=== PATIENT | female | born 1985 | race Caucasian/White ===

== ENCOUNTER 2024-01-20 22:09 | Emergency (ER) | payer SELFPAY ==
[2024-01-20 22:17] VITALS: BP 120/79
--- NOTE | 2024-01-20 22:58 | ED.GENMED ---
History of Present Illness
General
Chief Complaint: Musculo-Skeletal Complaint
Source: patient
Exam Limitations: none
Time Seen by Provider: 01/20/24 22:45
Travel History
Have you had any contact with someone who has COVID-19?: No
Do you have any symptoms of coronavirus? Fever > 100 degrees, chills, cough, shortness of breath, sore throat, loss of taste or smell, muscle aches, or headache?: No
History of Present Illness
History of Present Illness:
See MDM
Past History
Past History
ED Past Medical History: Psychiatric
ED Past Surgical History: Appendectomy
Social History
Tobacco: Vaping
Alcohol: None
Phy Exam
Physical Exam
Physical Exam:
See MDM
Course
Orders/Labs/Results
Orders:
Orders
01/20/24 22:21
Electrocardiogram (*1) Urgent
Reason for Study: Other
Other Reason for Exam: shoulder and neck pain.
EKG- Treatment ONCE
01/20/24 22:57
Ketorolac [Toradol] 30 mg IV NOW STA
CR Chest - 2 Views Urgent
Comment:
Reason For Exam: central chest pain
01/20/24 23:14
Complete Blood Count/With Diff Urgent
Comprehensive Metabolic Panel Urgent
Troponin I Urgent
Abnormal Lab Results
01/20/24
23:14
RBC 3.77 L 10^6/uL
(4.20-5.40)
Hgb 11.7 L g/dL
(12.0-16.0)
Hct 33.2 L %
(37.0-47.0)
01/20/24 23:14
01/20/24 23:14
Vital Signs
Initial and Last Documented VS:
Initial Vital Signs
Temp Pulse Resp BP Pulse Ox
98.2 F 69 18 120/79 98
01/20/24 22:17 01/20/24 22:17 01/20/24 22:17 01/20/24 22:17 01/20/24 22:17
Last Documented Vital Signs
Temp Pulse Resp BP Pulse Ox
98.2 F 69 18 120/79 98
01/20/24 22:17 01/20/24 22:17 01/20/24 22:17 01/20/24 22:17 01/20/24 22:17
MDM/Problems Addressed
Differential Diagnosis Includes:
HPI and MDM Narrative:
38-year-old female presenting for evaluation of central and right-sided chest pain. This has been ongoing for the past 3 nights or so. 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
She does not have a history of reflux but believes it is also not that as well. Patient states she is nervous because her brother had cardiac issues. On exam, she is well-appearing nontoxic. Symptoms are nonexertional. Given the nonischemic EKG
and history, doubt ACS. She does have tenderness to bilateral costochondral joints. Will obtain troponin and chest x-ray
Physical exam
General: Well appearing and non-toxic
HEENT: protecting airway
Neck: appears supple
CV: No evidence of cyanosis. Regular rate and rhythm
Chest: Tenderness to bilateral costochondral joint palpation
Resp: No accessory muscle use. Lungs clear
Abd: Non-distended
Extremities: No deformities
Neuro: alert
Psych: Normal affect
Skin: Intact
Problems Addressed including Acute and Chronic Conditions affecting care:
1. Chest pain
Acuity: acute
Prognosis: stable
Details: Doubt ACS given nonischemic EKG and nonexertional component. We discussed likely musculoskeletal and likely costochondritis. Will give Toradol and obtain chest x-ray and troponin
Updates
Chest x-ray and troponin negative. On reassessment after Toradol, patient feeling better. Discussed return precautions
Differential Diagnosis (but not limited to): Costochondritis, musculoskeletal pain, gastritis
Testing considered: D-dimer but she is neither tachycardic nor hypoxic
Drug therapy (if applicable): OTC meds, please see d/c instruction regarding Rx drugs
Amount and/or Complexity of Data Reviewed
Clinical info obtained from: Patient
External data reviewed: N/A
Labs I independently reviewed (but not limited to): Troponin negative
Radiology: X-ray independently reviewed: Chest x-ray clear
Pulse Ox: not hypoxic
EKG independently reviewed: Sinus rhythm, normal axis, no STEMI
Log Chipper: N/A
Critical Care: N/A
Risk of Complication:
Social Determinants of health: Good social support
Discussed with other providers: N/A
Escalation of Care includes Admit/Obs: After being observed in the Emergency Department, pt stable for discharge.
Occasional wrong word or 'sound a like' substitutions may have occurred due to the inherent limitations of voice recognition software. Read the chart carefully and recognize, using context, where substitutions have occurred.
*Critical Care Note
Total Time (30-74mins, 75-104mins- exclusive of procedures): Not Applicable
ED Attending Note
-
Portions of this chart may have been created with voice recognition software.� Occasional wrong word or��sound alike� substitutions may have occurred due to the inherent limitations of voice recognition software.
Discharge Plan
Departure
Patient Disposition: Home (Routine Discharge)
Date of Disposition: 01/21/24
Time of Disposition: 00:03
Patient with high blood pressure during this ER visit?: No
Discharge Problem:
Chest pain
Instructions: Chest Pain PCP Follow Up
Referrals:
Ron Thakur CRNP [Family Provider] -
Activity Restrictions/Additional Instructions:
Please return for any worsening symptoms.
You may return at any time if you have further concerns.
Please follow up with your doctor at the first available appointment, preferably this week.
Thank you for choosing [facility].
Interventions
Interventions:
*Risk Screen - Suicide Last Done: 01/20/24 23:23
*General Assessment Last Done: 01/20/24 23:23
*Neglect/Abuse Screening Last Done: 01/20/24 23:23
ED- Fall Risk Assessment Last Done: 01/20/24 23:50
*ED COVID-19 Vaccine History Last Done: 01/20/24 23:23
ED-Musculoskeletal Assessment Last Done: 01/20/24 23:50
Discharge Date and Time
Print Language: GEORGIAN
[2024-01-20 23:20] VITALS: BP 87/60
[2024-01-20] MEDS: TORADOL 30 MG IV (23:21)
[2024-01-20 23:23] VITALS: BMI 30.1
[2024-01-20 23:24] VITALS: BP 119/76
[2024-01-20 23:29] LABS: % Basophils 1.1 % (0-2); % Eosinophils 1.3 % (0-6); % Immature Granulocytes 0.1 % (0-0.5); % Lymphocytes 33.8 % (20.5-51.1); % Monocytes 6.4 % (1.7-9.3); % Neutrophils 57.3 % (42.2-75.2); Absolute Basophils 0.1 10^3/uL (0-0.2); Absolute Eosinophils 0.1 10^3/uL (0-0.7); Absolute Lymphocytes 2.8 10^3/uL (1.2-3.4); Absolute Monocytes 0.5 10^3/uL (0.1-0.6); Absolute Neutrophils 4.7 10^3/uL (1.4-6.5); Hematocrit 33.2 % (37.0-47.0); Hemoglobin 11.7 g/dL (12.0-16.0); Mean Corp Hgb Conc. 35.2 g/dL (33.0-37.0); Mean Corpuscular Volume 88.1 fL (81.0-99.0); Nucleated Red Blood Cells % 0 %; Platelet Count 361 10^3/uL (130-400); Red Blood Cell Count 3.77 10^6/uL (4.20-5.40); Red Cell Dist. Width 12.7 % (11.5-14.5); White Blood Cell Count 8.3 10^3/uL (4.8-10.8)
[2024-01-20 23:43] LABS: ALT (SGPT) < 10 U/L (0-35); AST (SGOT) 17 U/L (14-36); Albumin 4.1 g/dl (3.5-5.0); Alkaline Phosphatase 60 U/L (38-126); Blood Urea Nitrogen 16 mg/dl (7-17); Calcium 9.5 mg/dl (8.4-10.2); Carbon Dioxide 22 mmol/L (22-30); Chloride 107 mmol/L (98-107); Estimated Creatinine Clearance > 125 ml/min; Glucose 90 mg/dl (70-99); Potassium 3.9 mmol/L (3.5-5.1); Sodium 138 mmol/L (135-145); Total Bilirubin 0.2 mg/dl (0.2-1.3); Total Protein 6.8 g/dl (6.3-8.2); eGFR > 60.00
[2024-01-20 23:56] LABS: Troponin I < 0.012 ng/ml
[2024-01-21] VITALS: BP 106/92
== END 2024-01-21 00:23 | disposition home or self-care (01) ==
LOC: EMR 22:09
PROVIDERS: EMERGENCY PHYSICIAN Student in an Organized Health Care Education/Training Program; FAMILY PHYSICIAN Nurse Practitioner Family
DX: R07.89 Other chest pain (principal); F17.290 Nicotine dependence, other tobacco product, uncomplicated; Z90.49 Acquired absence of other specified parts of digestive tract
CPT/HCPCS: 99283; 96374; 71046; 80053; 84484; 85025; 93005

== ENCOUNTER 2024-11-23 07:36 | Emergency (ER) | payer SELFPAY ==
--- NOTE | 2024-11-23 08:15 | ED.GENMED ---
History of Present Illness
General
Chief Complaint: Chest Pain
Source: patient
Time Seen by Provider: 11/23/24 08:03
History of Present Illness
History of Present Illness:
39-year-old female with past medical history of mitral valve prolapse and lupus presenting to the emergency department for evaluation after awakening this morning around 1 AM with burning sensation in the middle of her chest which woke her up a few
times throughout the night, had 1 episode of nonbloody nonbilious emesis and since about 3 AM has had persistent right-sided pleuritic pain that radiates into her back. Patient was found to have a fever of 101.6 in triage, patient was unaware that
she had a fever prior to arrival but does endorse generalized bodyaches. Patient denies any obvious known sick contacts however she does states she works at [employer] at [employer] and states that there are obviously sick patients within the
hospital system and she could have come into contact with somebody there. Patient did not take any medications prior to arrival. Social history was noted for vaping however patient states that she did not vape at all this morning due to the
discomfort she is experiencing. Family history noncontributory.
Past History
Past History
ED Past Medical History: Psychiatric and Other
ED Past Surgical History: Appendectomy and
Social History
Tobacco: Vaping
Alcohol: None
Drug: None
Living: alone
Employment: Employed
Review of Systems
Review of Systems
All Other Systems: ROS reviewed and negative except as documented in HPI and ROS
Phy Exam
Physical Exam
Physical Exam:
GENERAL: Alert , in no apparent distress but does appear uncomfortable with deep inspiration
HEAD: NCAT
EYE: conjunctiva clear
NECK: Supple
ENT: mmm.
CARDIAC: Regular rate and rhythm
LUNGS: Clear breath sounds bilaterally, no acute respiratory distress, no wheezes/rales/rhonchi
NEUROLOGICAL: Alert and oriented
SKIN: Warm and dry, skin intact.
MUSCULOSKELETAL: well perfused.
PSYCH: Normal and appropriate interaction.
Scores
Heart Failure Risk
Heart Failure Risk Score: Not Applicable
Heart Score for Chest Pain Patients
STEMI patient?: Not applicable
Withdrawal Assessment of Alcohol
Withdrawal Assessment Completed?: Not applicable
Course
Orders/Labs/Results
Orders:
Orders
11/23/24 07:38
Electrocardiogram (*1) Urgent
Reason for Study: Chest Pain
EKG- Treatment ONCE
11/23/24 08:13
CR Chest - 2 Views Urgent
Comment:
Reason For Exam: right sided pleurisy, fever
11/23/24 08:17
Ibuprofen [Motrin] 600 mg PO NOW STA
11/23/24 08:23
Complete Blood Count/With Diff Urgent
Comprehensive Metabolic Panel Urgent
D-Dimer Urgent
Lipase Urgent
Troponin I Urgent
11/23/24 08:30
Influenza A+B Rapid Molecular Urgent
GEOVANNY Source: Nasal Swab
Specimen Description:
11/23/24 08:31
COVID-19 Antigen Urgent
Source: Nasal Swab
Abnormal Lab Results
11/23/24
08:23
WBC 11.0 H 10^3/uL
(4.8-10.8)
Plt Count 412 H 10^3/uL
(130-400)
Absolute Neuts (auto) 10.1 H 10^3/uL
(1.4-6.5)
Absolute Lymphs (auto) 0.4 L 10^3/uL
(1.2-3.4)
Neutrophils % 92.3 H %
(42.2-75.2)
Lymphocytes % 3.2 L %
(20.5-51.1)
D-Dimer 1.62 H ug/mlFEU
(0.00-0.50)
Glucose 126 H mg/dl
(70-99)
Calcium 10.5 H mg/dl
(8.4-10.2)
11/23/24 08:23
11/23/24 08:23
Vital Signs
Initial and Last Documented VS:
Initial Vital Signs
Temp Pulse Resp Pulse Ox
101.6 F H 117 20 93
11/23/24 07:42 11/23/24 07:42 11/23/24 07:42 11/23/24 07:42
Last Documented Vital Signs
Temp Pulse Resp BP Pulse Ox
101.6 F H 106 18 125/75 98
11/23/24 07:42 11/23/24 08:27 11/23/24 08:27 11/23/24 08:27 11/23/24 08:27
MDM/Problems Addressed
Differential Diagnosis Includes:
Pneumonia, pleurisy, PE, COVID, flu
MDM/Problems Addressed:
39-year-old female presenting to the ER for evaluation of chest discomfort, vomiting and fever with symptoms all starting acutely this morning. Did not take any medications prior to arrival as she did not know she had a fever. Will treat fever
here with Motrin. Given the pleuritic nature of the pain combined with her tachycardia will obtain a D-dimer for possible CTA if positive. Disposition pending.
*Radiology
Radiology exam reviewed: preliminary read by ED provider (Right middle lobe pneumonia)
*Pulse Oximetry
Patient hypoxic: no
*Daily Sales Audit Clerk Interpretation
Rate: tachycardiac
Rhythm: sinus
*Critical Care Note
Total Time (30-74mins, 75-104mins- exclusive of procedures): Not Applicable
Patient Management
Escalation/DeEscalation of care consider admission/obs:
Patient has a right middle lobe pneumonia on chest x-ray. She does have a slight leukocytosis. She remains hemodynamically stable and in no acute respiratory distress. D-dimer did come back elevated however this can likely be explained by
patient's pneumonia and I do not suspect PE as a diagnosis. The location of the pneumonia is exactly where her pain is currently occurring. Patient otherwise does not have risk factors for pulmonary emboli. Will treat with Augmentin and
Zithromax. Patient advised on return precautions to the ER. She is otherwise stable for discharge home.
ED Attending Note
-
Portions of this chart may have been created with voice recognition software.� Occasional wrong word or��sound alike� substitutions may have occurred due to the inherent limitations of voice recognition software.
Discharge Plan
Departure
Patient Disposition: Home (Routine Discharge)
Date of Disposition: 11/23/24
Time of Disposition: 10:01
Patient with high blood pressure during this ER visit?: No
Discharge Problem:
Pneumonia
Instructions: Pneumonia in adults - Discharge instructions
Prescriptions:
New
amoxicillin-pot clavulanate 875-125 mg tablet
1 tab PO BID 10 Days Qty: 20 0RF
azithromycin [Zithromax Z-Anthony] 250 mg tablet
See Rx Instructions .ROUTE .COMPLEX 6 Days Qty: 6 0RF
Rx Instructions:
Take two tabs PO day 1, Take one tab PO remaining 4 days
Referrals:
Ron Thakur CRNP [Family Provider] -
Stand Alone Forms: Return to Work
Interventions
Interventions:
*Risk Screen - Suicide Last Done: 11/23/24 07:46
*General Assessment Last Done: 11/23/24 08:27
*Neglect/Abuse Screening Last Done: 11/23/24 08:27
*ED- Fall Risk Assessment Last Done: 11/23/24 08:27
*ED COVID-19 Vaccine History Last Done: 11/23/24 08:27
*Nursing Disposition Last Done: 11/23/24 10:15
ED- Cardiac Assessment Last Done: 11/23/24 08:26
Discharge Date and Time
Discharge Date/Time: 11/23/24 10:15
Print Language: AMHARIC
[2024-11-23 08:27] VITALS: BP 125/75
[2024-11-23] MEDS: MOTRIN 600 MG PO (08:31)
[2024-11-23 08:37] LABS: % Basophils 0.4 % (0-2); % Eosinophils 0.5 % (0-6); % Immature Granulocytes 0.3 % (0-0.5); % Lymphocytes 3.2 % (20.5-51.1); % Monocytes 3.3 % (1.7-9.3); % Neutrophils 92.3 % (42.2-75.2); Absolute Eosinophils 0.1 10^3/uL (0-0.7); Absolute Lymphocytes 0.4 10^3/uL (1.2-3.4); Absolute Monocytes 0.4 10^3/uL (0.1-0.6); Absolute Neutrophils 10.1 10^3/uL (1.4-6.5); Hematocrit 37.9 % (37.0-47.0); Hemoglobin 13.1 g/dL (12.0-16.0); Mean Corp Hgb Conc. 34.6 g/dL (33.0-37.0); Mean Corpuscular Hgb 30.3 pg (27.0-31.0); Mean Corpuscular Volume 87.5 fL (81.0-99.0); Mean Platelet Volume 9.1 fL (7.4-10.4); Nucleated Red Blood Cells % 0 %; Platelet Count 412 10^3/uL (130-400); Red Blood Cell Count 4.33 10^6/uL (4.20-5.40); Red Cell Dist. Width 13.3 % (11.5-14.5)
[2024-11-23 08:46] LABS: ALT (SGPT) 15 U/L (0-35); AST (SGOT) 20 U/L (14-36); Albumin 4.3 g/dl (3.5-5.0); Alkaline Phosphatase 79 U/L (38-126); Blood Urea Nitrogen 17 mg/dl (7-17); Calcium 10.5 mg/dl (8.4-10.2); Carbon Dioxide 24 mmol/L (22-30); Chloride 106 mmol/L (98-107); Glucose 126 mg/dl (70-99); Lipase 90 U/L (23-300); Potassium 4.2 mmol/L (3.5-5.1); Sodium 140 mmol/L (135-145); Total Bilirubin 0.8 mg/dl (0.2-1.3); Total Protein 7.1 g/dl (6.3-8.2); eGFR > 60.00
[2024-11-23 08:54] LABS: Troponin I < 0.012 ng/ml
[2024-11-23 09:10] LABS: COVID-19 Antigen Negative (Negative)
[2024-11-23 09:39] LABS: D-Dimer 1.62 ug/mlFEU (0.00-0.50)
== END 2024-11-23 10:15 | disposition home or self-care (01) ==
LOC: EMR 07:36
PROVIDERS: Physician Assistant Medical; EMERGENCY PHYSICIAN Emergency Medicine; FAMILY PHYSICIAN Nurse Practitioner Family
DX: J18.9 Pneumonia, unspecified organism (principal); I34.1 Nonrheumatic mitral (valve) prolapse; M32.9 Systemic lupus erythematosus, unspecified; F17.290 Nicotine dependence, other tobacco product, uncomplicated; Z90.49 Acquired absence of other specified parts of digestive tract
CPT/HCPCS: 99283; 71046; 80053; 83690; 84484; 85025; 85379; 87502; 87811; 93005

== ENCOUNTER 2025-03-03 13:32 | Emergency (ER) | payer SELFPAY ==
[2025-03-03 13:34] VITALS: BP 172/90
[2025-03-03 15:30] VITALS: BP 114/75
--- NOTE | 2025-03-03 15:38 | ED.GENMED ---
History of Present Illness
General
Chief Complaint: Breathing Problem
Time Seen by Provider: 03/03/25 15:30
History of Present Illness
History of Present Illness:
39-year-old female presents to the emergency department for evaluation of chest discomfort and coughing for the past several days. [place] febrile at home and took Tylenol prior to coming in. Notes that she has been diagnosed with pneumonia twice in
the past 3 to 4 months. She also notes that over the past 6 months she has had increased nighttime chest discomfort and acid reflux sensation, coughing frequently at nighttime. She takes omeprazole but does not feel that this helps.
Past History
Past History
ED Past Medical History: Psychiatric and Other
ED Past Surgical History: Appendectomy and
Social History
Tobacco: Vaping
Alcohol: None
Drug: None
Living: alone
Employment: Employed
Review of Systems
Review of Systems
Allergies reviewed?: Yes
All Other Systems: ROS reviewed and negative except as documented in HPI and ROS
Phy Exam
Physical Exam
Physical Exam:
GEN: Well appearing, NAD, WDWN
HEENT: Oral mucosa moist, no scleral icterus
Cardiac: Regular rate and rhythm, no murmurs
Lung: Faint right upper lobe rhonchi, otherwise clear
MSK: No gross deformity or injuries
Skin: Good color, no pallor or jaundice, no rashes
Neuro: AO x3, moves all extremities freely
Psych: Calm, cooperative
Course
Orders/Labs/Results
Orders:
Orders
03/03/25 13:38
Electrocardiogram (*1) Urgent
Reason for Study: Chest Pain
EKG- Treatment ONCE
Chest [CR Chest - 2 Views ] Urgent
Comment: hx of PNA
Reason For Exam: SOB, chest burning
Vital Signs
Initial and Last Documented VS:
Initial Vital Signs
Temp Pulse Resp BP Pulse Ox
99.2 F 116 20 172/90 96
03/03/25 13:34 03/03/25 13:34 03/03/25 13:34 03/03/25 13:34 03/03/25 13:34
Last Documented Vital Signs
Temp Pulse Resp BP Pulse Ox
99.2 F 97 19 114/75 95
03/03/25 13:34 03/03/25 16:00 03/03/25 16:00 03/03/25 15:30 03/03/25 16:00
MDM/Problems Addressed
MDM/Problems Addressed:
Patient is clinically well with no signs of respiratory distress or hypoxemia. Will treat with cephalosporin and azithromycin given multitude of recent antibiotics in the past 3 to 4 months. Chest x-ray independently interpreted by me does reveal
a right upper lobe infiltrate. Given that these pneumonias have reportedly all been right lung is fixed the question of whether she could have aspiration events secondary to her uncontrolled acid reflux and we will treat accordingly although due to
interaction between cephalosporin and PPIs will hold off on this dual treatment until after antibiotics are completed. Certainly she needs to see a GI doctor as an outpatient
*Pulse Oximetry
SaO2: 96
Oxygen Mode of Delivery: Room air
Patient hypoxic: no
*Critical Care Note
Total Time (30-74mins, 75-104mins- exclusive of procedures): Not Applicable
ED Attending Note
-
Portions of this chart may have been created with voice recognition software.� Occasional wrong word or��sound alike� substitutions may have occurred due to the inherent limitations of voice recognition software.
Discharge Plan
Departure
Patient Disposition: Home (Routine Discharge)
Date of Disposition: 03/03/25
Time of Disposition: 15:38
Patient with high blood pressure during this ER visit?: No
Discharge Problem:
Community acquired pneumonia
Instructions: Pneumonia in adults - Discharge instructions
Prescriptions:
New
cefpodoxime 200 mg tablet
200 mg PO BID 5 Days Qty: 10 0RF
azithromycin [Zithromax] 250 mg tablet
250 mg PO DAILY Qty: 6 0RF
Rx Instructions:
500mg PO day 1 then 250mg PO qd x 4d
pantoprazole 40 mg tablet,delayed release (DR/EC)
40 mg PO BID Qty: 30 0RF
Rx Instructions:
40mg PO BID x 14 days, then 40mg PO daily
famotidine 20 mg tablet
20 mg PO BID PRN (Reason: acid reflux) Qty: 60 0RF
No Action
amoxicillin-pot clavulanate 875-125 mg tablet
1 tab PO BID 10 Days Qty: 20 0RF
azithromycin [Zithromax Z-Anthony] 250 mg tablet
See Rx Instructions .ROUTE .COMPLEX 6 Days Qty: 6 0RF
Rx Instructions:
Take two tabs PO day 1, Take one tab PO remaining 4 days
Referrals:
DoSandrita MD [Active, Gastroenterology]
Stand Alone Forms: Return to Work
Activity Restrictions/Additional Instructions:
Do not begin the pantoprazole/famotidine until AFTER the antibiotics are completed. Continue your omeprazole until that time
Interventions
Interventions:
*Risk Screen - Suicide Last Done: 03/03/25 13:34
*General Assessment Last Done: 03/03/25 13:34
*Neglect/Abuse Screening Last Done: 03/03/25 16:04
*ED- Fall Risk Assessment Last Done: 03/03/25 16:04
*ED COVID-19 Vaccine History Last Done: 03/03/25 16:04
*Nursing Disposition Last Done: 03/03/25 16:06
ED- Cardiac Assessment Last Done: 03/03/25 15:52
ED- Pulmonary Assessment Last Done: 03/03/25 15:52
Discharge Date and Time
Discharge Date/Time: 03/03/25 16:08
Print Language: SERBIAN
== END 2025-03-03 16:08 | disposition home or self-care (01) ==
LOC: EMR 13:32
PROVIDERS: EMERGENCY PHYSICIAN Emergency Medicine; FAMILY PHYSICIAN Nurse Practitioner Family
DX: J18.9 Pneumonia, unspecified organism (principal); K21.9 Gastro-esophageal reflux disease without esophagitis; F17.290 Nicotine dependence, other tobacco product, uncomplicated
CPT/HCPCS: 99283; 71046; 93005

== ENCOUNTER 2025-06-29 00:06 | Emergency (ER) | payer BC, SELFPAY ==
[2025-06-29 00:07] VITALS: BP 130/70
[2025-06-29 00:22] VITALS: BP 112/81
[2025-06-29 00:25] VITALS: BMI 35.6
--- NOTE | 2025-06-29 01:00 | ED.GENMED ---
History of Present Illness
General
Chief Complaint: Chest Pain
Source: patient
Exam Limitations: none
Time Seen by Provider: 06/29/25 00:13
Nursing documentation reviewed up to this point in time: agreed with
History of Present Illness
History of Present Illness:
Note:
CHIEF COMPLAINT(S)
Chest pain and palpitations at night when laying down.
HISTORY OF PRESENT ILLNESS
The patient is a 39-year-old female hx of lupus, MVP presenting with recurrent chest pain and palpitations. The symptoms have been constant over the past few nights and typically occur at night when the patient is laying down, particularly when she
is about to fall asleep. The patient describes the sensation as a fluttering in the chest that sometimes causes increased blood pressure and difficulty breathing, especially when taking deep breaths. She reports that the pain is more prominent in
the back than in the chest and is associated with tightness across the chest. The pain radiates to the back, is sharp, and sometimes resembles a rushing sensation. The palpitations sometimes make her heart race. These episodes have been occurring
for the past few nights and tend to resolve once she wakes up. The patient was previously on Doxepin, which she restarted about two weeks ago. She also mentioned a recent cessation of Quetiapine. There has been no history of recent injuries, heavy
lifting, long-distance travel, fever, cough, or respiratory symptoms. There's no notable swelling or redness in the legs. She has no hx of sleep apnea. She has never had a sleep study. She denies any sick contacts, fevers or chills. She currently
does not have chest pain, but notes it was present persistently the night prior but she currently does have back pain.
PAST MEDICAL AND SURGICAL HISTORY
The patient mentions previous treatment with medications for anxiety and hypertension. There's no record of recent surgeries.
FAMILY HISTORY
The patients mother has a history of a weak heart, potentially cardiomyopathy, and there is a family history of heart attacks occurring during sleep on the maternal side including her grandmother and aunt.
REVIEW OF SYSTEMS
- Cardiovascular: Chest tightness, fluttering sensation, sharp pain, and palpitations.
- Respiratory: Shortness of breath, especially when taking deep breaths.
- Musculoskeletal: No prior injuries reported; pain radiates to the back.
- Neurological: Episodes occur at night, no prior episodes.
PHYSICAL EXAM
General: Alert, no acute distress.
Skin: Warm, dry.
Head: Normocephalic, atraumatic.
Neck: Supple, trachea midline.
Eyes, Ears, Nose, Mouth, and Throat: Oral mucosa moist.
Cardiovascular: Regular rate and rhythm, no murmurs. Normal peripheral perfusion, No edema.
Respiratory: Regular rate and rhythm, no murmurs. Respirations are non-labored.
Gastrointestinal: Abdomen nondistended. No CVA tenderness.
Back: Normal range of motion, Normal alignment.
Musculoskeletal: No midline spinal tenderness to palpation. Normal range of motion, normal strength.
Neurological: Alert and oriented to person, place, time, and situation, No focal neurological deficit observed.
Psychiatric: Cooperative, appropriate mood & affect.
PROBLEM LIST
Acute Problems:
- Chest pain and palpitations at night when laying down.
- Shortness of breath.
PLAN
1. Place patient on cardiac monitoring to assess for arrhythmias.
2. Conduct troponin blood tests to check for cardiac injury.
3. Perform imaging to evaluate for potential pulmonary embolism or other causes.
4. Monitor and manage blood pressure as needed.
DIFFERENTIAL DIAGNOSIS
The Differential Diagnosis includes, in no particular order and is not limited to:
1. Myocardial infarction
2. Costochondritis
3. Anxiety or panic disorder
4. Gastroesophageal reflux disease (GERD)
5. Pulmonary embolism
6. Cardiac arrhythmias (e.g., atrial fibrillation)
7. Hypertensive crisis
8. Pericarditis
9. Heart failure
10. Aortic dissection
CHART REVIEW
Reviewed ER physician documentation from 03/03/25
Reviewed ER physician documentation from 11/23/24
MDM/DISPOSITION
39-year-old female with the past distant history of mitral valve prolapse, lupus , presents the ER today with concerns of intermittent chest pains for the past several nights as well as iculty sleeping due to a sensation of pulpitis and throbbing in
the throat when she lays back. She's no history sleep apnea. She reports that she's on multiple sleeping medication's to help her sleep. She reports that with her primary care provider, they have been changing her sleeping medicines frequently.
Currently, patient denies palpitations and denies chest pain. She does note that there's pain in her back with occasional shortness of breath. And physical exam she's well appearing into acute distress. She's not tachycardic. She's not hypoxic.
Labs eviewed, patient mildly anemic . Anupam elevated. CMP unremarkable. Patient is not . Due to elevated D dimer, patient was sent for CAT scan which should know evidence of acute disease. Troponin is normal. Her ECG is not ischemic.
Patient has never had a sleep study and I question if there is a component of sleep apnea contributing to her waking up and a the sensation of shortness of breath. Advised patient that she should get a sleep study as now patient. Patient chest
pains, would recommend llow up with cardiology. Patient states that she will probably not be able to follow up with cardiology as she is awaiting a appointment coming up with a new primary care provider. Patient is also concerned about her blood
pressure advise her to keep a log of her blood pressure pressures to bring to her primary care provider's office. Patient express understanding. Return precautions discussed. Patient stable for discharge.
Past History
Past History
ED Past Medical History: Psychiatric and Other
ED Past Surgical History: Appendectomy and
Social History
Tobacco: Vaping
Alcohol: None
Drug: None
Living: alone
Employment: Employed
Phy Exam
Physical Exam
Physical Exam:
see hpi
Scores
Heart Score for Chest Pain Patients
STEMI patient?: No
History: Slightly or Non-Suspicious
ECG: Normal
Age: </= 45 years
Risk Factors: No Risk Factors
Troponin: </= Normal Limit
Heart Score for Chest Pain Patients: 0
Heart Score Risk: 2.5% MACE over next 6 weeks
Course
Orders/Labs/Results
Orders:
Orders
06/29/25 00:10
ECG [Electrocardiogram (*1)] Urgent
Reason for Study: Chest Pain
Other Reason for Exam: INTERMITTANT
06/29/25 00:11
EKG- Treatment ONCE
06/29/25 00:47
Cardiac Monitoring- Treatment ONCE
IV Insert/Care/Rem.- Treatment PRN
Test Result ONCE
Pulse Ox/spot Check [RESP] Urgent
Quantity: 1
Special Instructions: ON ROOM AIR
06/29/25 01:13
Complete Blood Count/With Diff Urgent
Comprehensive Metabolic Panel Urgent
HCG, Serum Qualitative Screen Urgent
Comment: Notify provider if positive test present
Troponin I Urgent
06/29/25 01:18
CR Chest - 2 Views Urgent
Comment:
Reason For Exam: chest pain
06/29/25 01:28
D-Dimer Urgent
06/29/25 02:24
CT Chest PE Study Urgent
Comment:
Reason For Exam: chest pain, back pain
06/29/25 04:30
Electrocardiogram (*1) Urgent
Reason for Study: Chest Pain
Abnormal Lab Results
06/29/25 06/29/25
01:13 01:28
RBC 3.88 L 10^6/uL
(4.20-5.40)
Hgb 11.6 L g/dL
(12.0-16.0)
Hct 33.9 L %
(37.0-47.0)
Absolute Monos (auto) 0.7 H 10^3/uL
(0.1-0.6)
D-Dimer 0.56 H ug/mlFEU
(0.00-0.50)
Glucose 110 H mg/dl
(70-99)
Total Bilirubin 0.1 L mg/dl
(0.2-1.3)
06/29/25 01:13
06/29/25 01:13
Vital Signs
Initial and Last Documented VS:
Initial Vital Signs
Temp Pulse Resp BP Pulse Ox
97.6 F 94 20 130/70 100
06/29/25 00:07 06/29/25 00:07 06/29/25 00:07 06/29/25 00:07 06/29/25 00:07
Last Documented Vital Signs
Temp Pulse Resp BP Pulse Ox
97.6 F 70 16 113/79 100
06/29/25 00:07 06/29/25 04:58 06/29/25 04:58 06/29/25 04:58 06/29/25 04:58
*Pulse Oximetry
SaO2: 98
Patient hypoxic: no
*Critical Care Note
Total Time (30-74mins, 75-104mins- exclusive of procedures): Not Applicable
ED Attending Note
-
Portions of this chart may have been created with voice recognition software.� Occasional wrong word or��sound alike� substitutions may have occurred due to the inherent limitations of voice recognition software.
Discharge Plan
Departure
Patient Disposition: Home (Routine Discharge)
Date of Disposition: 06/29/25
Time of Disposition: 04:39
Patient with high blood pressure during this ER visit?: No
Condition: Good
Discharge Problem:
Chest pain, Heart palpitations
Instructions: Chest Pain DCA Follow Up, BLOOD PRESSURE
Prescriptions:
No Action
clonidine HCl 0.1 mg Tablet
0.1 mg PO DAILY PRN (Reason: anxiety)
gabapentin 800 mg Tablet
800 mg PO TID
doxepin 150 mg Capsule
150 mg PO DAILY
melatonin 5 mg Tablet
10 mg PO HS PRN (Reason: insomnia)
buprenorphine-naloxone [Suboxone] 8-2 mg Film
1 film BUCCAL BID
Referrals:
NONE,* [Family Provider, Internal Medicine]
Activity Restrictions/Additional Instructions:
Please continue to monitor your symptoms. Please follow-up your primary care provider given your sleeping patterns and sleeping medication.
I recommend following up with a architectural practice manager again. You may need further cardiac testing, you may also need a sleep study.
PLEASE RETURN TO ER SHOULD YOU DEVELOP ACUTE WORSENING OF YOUR SYMPTOMS, SHORTNESS OF BREATH, FAINTING SPELLS, DIZZINESS, LIGHTHEADEDNESS, LOSS OF VISION, INABILITY BREATHE, OR ANY OTHER SIGNS OR SYMPTOMS WORSENING
Interventions
Interventions:
*Risk Screen - Suicide Last Done: 06/29/25 00:07
*General Assessment Last Done: 06/29/25 00:26
*Neglect/Abuse Screening Last Done: 06/29/25 00:07
*ED- Fall Risk Assessment Last Done: 06/29/25 00:26
*ED COVID-19 Vaccine History Last Done: 06/29/25 00:26
*ED Influenza Vaccine History Last Done: 06/29/25 00:26
*Nursing Disposition Last Done: 06/29/25 04:58
ED- Cardiac Assessment Last Done: 06/29/25 00:26
Discharge Date and Time
Discharge Date/Time: 06/29/25 05:35
Print Language: MALAY
[2025-06-29 01:29] LABS: Hematocrit 33.9 % (37.0-47.0); Hemoglobin 11.6 g/dL (12.0-16.0); Mean Corp Hgb Conc. 34.2 g/dL (33.0-37.0); Mean Corpuscular Volume 87.4 fL (81.0-99.0); Nucleated Red Blood Cells % 0 %; Platelet Count 388 10^3/uL (130-400); Red Cell Dist. Width 13.7 % (11.5-14.5)
[2025-06-29 01:32] LABS: HCG, Serum Qualitative Screen Negative
[2025-06-29 01:38] LABS: ALT (SGPT) 16 U/L (0-35); AST (SGOT) 18 U/L (14-36); Albumin 4.0 g/dl (3.5-5.0); Alkaline Phosphatase 70 U/L (38-126); Blood Urea Nitrogen 15 mg/dl (7-17); Calcium 9.1 mg/dl (8.4-10.2); Carbon Dioxide 24 mmol/L (22-30); Chloride 107 mmol/L (98-107); Estimated Creatinine Clearance 122 ml/min; Glucose 110 mg/dl (70-99); Potassium 3.9 mmol/L (3.5-5.1); Sodium 138 mmol/L (135-145); Total Protein 6.7 g/dl (6.3-8.2); eGFR > 60.00
[2025-06-29 01:49] LABS: Troponin I 0.013 ng/ml
[2025-06-29 01:49] LABS: D-Dimer 0.56 ug/mlFEU (0.00-0.50)
[2025-06-29 02:00] VITALS: BP 101/59
[2025-06-29 04:58] VITALS: BP 113/79
== END 2025-06-29 05:35 | disposition home or self-care (01) ==
LOC: EMR 00:06
PROVIDERS: Physician Assistant; EMERGENCY PHYSICIAN Emergency Medicine
DX: R07.9 Chest pain, unspecified (principal); R00.2 Palpitations; F17.290 Nicotine dependence, other tobacco product, uncomplicated; I10 Essential (primary) hypertension; I34.1 Nonrheumatic mitral (valve) prolapse
CPT/HCPCS: 99285; 71046; 71275; 80053; 84484; 84703; 85025; 85379; 93005; Q9967